=== PATIENT | female | born 1955 | race Caucasian/White ===

== ENCOUNTER → 2020-03-26 15:30 | Outpatient (CLI) | payer MEDICARE, SELFPAY ==
[2020-03-26 16:07] LABS: Chloride 101 mmol/L (98-107); Potassium 3.2 mmoL/L (3.5-5.1); Sodium 134 mmol/L (136-145)
[2020-03-26 16:08] LABS: Basophils % 0.2 % (0.1-2.0); Eosinophils % 0.2 % (0.1-12.0); Hematocrit 33.2 % (37.0-47.0); Hemoglobin 11.1 g/dL (12.2-16.2); Lymphocytes # 1.9 K/mm3 (0.7-4.5); Lymphocytes % 16.9 % (10-50); Mean Corpuscular HGB Conc 33.5 g/dL (31.8-35.4); Mean Corpuscular Hemoglobin 29.9 pg (27.0-31.2); Mean Corpuscular Volume 89.3 fl (81-99); Mean Platelet Volume 7.6 fl (7.4-10.4); Monocytes # 0.9 K/mm3 (0.1-1.0); Monocytes % 8.2 % (1.7-9.3); Neutrophils # 8.5 K/mm3 (1.8-7.8); Neutrophils % 74.4 % (37.0-80.0); Platelet Count 356 K/mm3 (142-424); Red Blood Count 3.71 M/mm3 (4.20-5.40); Red Cell Distribution Width 14.3 % (11.5-17.5); White Blood Count 11.4 K/mm3 (4.8-10.8)
[2020-03-26 16:10] LABS: Anion Gap 14.2 mEq/L (5-15); Blood Urea Nitrogen 12 mg/dl (7-17); Calcium 8.9 mg/dl (8.4-10.2); Carbon Dioxide 22 mmol/L (22.0-30.0); Estimated Glomerular Filt Rate 41 ml/min (>60); GFR (African American) 50 ML/MIN (>60); Glucose 122 mg/dl (74-100)
== END ==
PROVIDERS: Visit Provider Surgery
DX: C20 Malignant neoplasm of rectum (principal)
CPT/HCPCS: 80048; 85025